=== PATIENT | male | born 1955 | race Caucasian/White ===

== ENCOUNTER 2016-11-06 17:10 | Observation (INO) | payer OTHER ==
[~2016-11-06] VITALS: Ht 180.3 cm; Wt 66.0 kg
[2016-11-06 17:12] VITALS: BP 177/88; PULSE 100; RESP 24; TEMP 98.2; O2SAT 100
--- NOTE | 2016-11-06 20:45 | PD ---
HPI Chief Complaint: Headache Time Seen by Provider: 20:27 Travel History International Travel<30 days: No Contact w/Intl Traveler<30days: No Traveled to known affect area: No History of Present Illness HPI 61yo M with PMH of cluster headaches was sent in by neurologist Dr. Dozier for evaluation and treatment. Pt has history of cluster headache for 7 years but it has gotten worst for the last year. He is currently in a clinical trial ENFORCE and states that since Sunday, headache is getting worst. Pt saw Dr. Dozier today in his office and was referred to the ED for CT scan and medication for his headache. Denies any trauma, fever, chest pain, sob, n/v, abdominal pain, focal weakness or numbness. States headache is left sided, associated with left eye tearing and feels like his usual headache. PFSH Past Medical History Diminished Hearing: No Headaches: Yes (cluster) Tetanus Vaccination: > 5 Years Influenza Vaccination: No Past Surgical History Surgical History: No Previous Surgery Social History Alcohol Use: No Tobacco Use: Yes (one pack) Allergies-Medications (Allergen,Severity, Reaction): Coded Allergies: No Known Allergies (Unverified , 11/06/16) Reported Meds & Prescriptions Reported Meds & Active Scripts Active Reported Verapamil (Verapamil HCl) 80 Mg Tab Unknown Dose PO TID Imitrex (Sumatriptan Succinate) 100 Mg Tab 50 Mg PO Q4HR PRN If a satisfactory response has not been obtained at 2 hours, a second dose may be administered Bqtcbtwcky-Zhvcuxtehmlzf-Nemjnvxu 50-325-40 Mg Tab 2 Tab PO Q4H PRN Do not exceed 6 tablets/day. Review of Systems Except as stated in HPI: all other systems reviewed are Neg Physical Exam Narrative GENERAL: 61yo M in moderate distress. SKIN: Focused skin assessment warm/dry. HEAD: Atraumatic. Normocephalic. EYES: Pupils equal and round. EOMI. No scleral icterus. No injection or drainage. ENT: No nasal bleeding or discharge. Mucous membranes pink and moist. NECK: Trachea midline. No JVD. CARDIOVASCULAR: Regular rate and rhythm. No murmur appreciated. RESPIRATORY: No accessory muscle use. Clear to auscultation. Breath sounds equal bilaterally. GASTROINTESTINAL: Abdomen soft, non-tender, nondistended. MUSCULOSKELETAL: No obvious deformities. No clubbing. No cyanosis. No edema. NEUROLOGICAL: Awake and alert. No obvious cranial nerve deficits. Motor grossly within normal limits. Normal speech. PSYCHIATRIC: Appropriate mood and affect; insight and judgment normal. Data Data Last Documented VS Vital Signs Date Time Temp Pulse Resp B/P Pulse Ox O2 Delivery O2 Flow Rate FiO2 11/06/16 22:00 76 16 139/77 98 Room Air 11/06/16 17:12 98.2 Orders Complete Blood Count With Diff (11/06/16 20:54) Basic Metabolic Panel (Bmp) (11/06/16 20:54) Prothrombin Time / Inr (Pt) (11/06/16 20:54) Act Partial Throm Time (Ptt) (11/06/16 20:54) Ct Brain W/O Iv Contrast(Rout) (11/06/16 ) Ketorolac Inj (Toradol Inj) (11/06/16 22:30) Admit Order (Ed Use Only) (11/06/16 22:55) Labs Laboratory Tests Test 11/06/16 21:10 White Blood Count 16.1 TH/MM3 Red Blood Count 4.70 MIL/MM3 Hemoglobin 14.0 GM/DL Hematocrit 42.2 % Mean Corpuscular Volume 89.8 FL Mean Corpuscular Hemoglobin 29.7 PG Mean Corpuscular Hemoglobin 33.0 % Concent Red Cell Distribution Width 12.8 % Platelet Count 301 TH/MM3 Mean Platelet Volume 7.4 FL Neutrophils (%) (Auto) 70.2 % Lymphocytes (%) (Auto) 15.0 % Monocytes (%) (Auto) 7.4 % Eosinophils (%) (Auto) 6.6 % Basophils (%) (Auto) 0.8 % Neutrophils # (Auto) 11.3 TH/MM3 Lymphocytes # (Auto) 2.4 TH/MM3 Monocytes # (Auto) 1.2 TH/MM3 Eosinophils # (Auto) 1.1 TH/MM3 Basophils # (Auto) 0.1 TH/MM3 CBC Comment DIFF FINAL Differential Comment Prothrombin Time 10.4 SEC Prothromb Time International 0.9 RATIO Ratio Activated Partial 27.1 SEC Thromboplast Time Sodium Level 136 MEQ/L Potassium Level 3.9 MEQ/L Chloride Level 103 MEQ/L Carbon Dioxide Level 26.6 MEQ/L Anion Gap 6 MEQ/L Blood Urea Nitrogen 13 MG/DL Creatinine 0.81 MG/DL Estimat Glomerular Filtration 97 ML/MIN Rate Random Glucose 109 MG/DL Calcium Level 8.5 MG/DL MDM Medical Decision Making Medical Screen Exam Complete: Yes Emergency Medical Condition: Yes Differential Diagnosis Cluster headache vs. ICH vs. Brain tumor Narrative Course 61yo M with history of cluster headache here with worsening left sided headache. Pt was given oxygen in the ED with improvement of headache. I discussed case with Dr. Talamantes who is the neurologist covering Dr. Dozier. He recommends labs, CT brain and admit for observation for pain control as well as putting in a neurology consult. I gave pt toradol IV which helped with the pain but states that there is still pressure on the left side and it has not resolved. Labs reviewed, leukocytosis at 16.1. BMP unremarkable. CT brain negative. I discussed case with Dr. Rahman and accepted to Dr. Ye services. Pt agrees with observation for intractable cluster headache. Diagnosis Primary Impression: Cluster headache Qualified Code: G44.011 - Intractable episodic cluster headache Admitting Information Admitting Physician Requests: Observation Rolanda Page DO Nov 06, 2016 20:45 Rolanda Page DO Nov 06, 2016 20:45
[2016-11-06 21:33] LABS: AUTOMATED NEUTROPHIL # 11.3 TH/MM3 (1.8-7.7); BASOPHIL # 0.1 TH/MM3 (0-0.2); BASOPHIL % 0.8 % (0.0-2.0); EOSINOPHIL # 1.1 TH/MM3 (0-0.4); EOSINOPHIL % 6.6 % (0.0-4.0); HEMATOCRIT 42.2 % (39.0-51.0); HEMO FLAGS DIFF FINAL; LYMPHOCYTE # 2.4 TH/MM3 (1.0-4.8); MEAN CELL VOLUME 89.8 FL (80.0-100.0); MEAN CORPUSCULAR HEMOGLOBIN 29.7 PG (27.0-34.0); MONO % 7.4 % (0.0-8.0); NEUT % 70.2 % (16.0-70.0); PLATELET COUNT 301 TH/MM3 (150-450); RED CELL DISTRIBUTION WIDTH 12.8 % (11.6-17.2); WHITE BLOOD COUNT 16.1 TH/MM3 (4.0-11.0)
[2016-11-06 21:46] LABS: APTT (PATIENT) 27.1 SEC (24.3-30.1); INTERNATIONAL NORMALIZED RATIO 0.9 RATIO; PROTHROMBIN TIME - PATIENT 10.4 SEC (9.8-11.6)
--- NOTE | 2016-11-06 21:46 | RADRPT ---
EXAM DATE/TIME: 11/06/2016 21:28 [facility] COMPARISON: No previous studies available for comparison. INDICATIONS : Patient complains of cluster headache. RADIATION DOSE: 56.35 CTDIvol (mGy) MEDICAL HISTORY : None SURGICAL HISTORY : None. ENCOUNTER: Initial ACUITY: 1 day PAIN SCALE: 5/10 LOCATION: cranial TECHNIQUE: Multiple contiguous axial images were obtained of the head. Using automated exposure control and adj ustment of the mA and/or kV according to patient size, radiation dose was kept as low as reasonably a chievable to obtain optimal diagnostic quality images. DICOM format image data is available electro nically for review and comparison. FINDINGS: SUPERTENTORIUM; The ventricles are normal for age. There is no parenchymal hemorrhage, midline s hift, mass lesion, or acute infarction. No extra-axial fluid collections are seen. POSTERIOR FOSSA: The cerebellum and brainstem are intact. The 4th ventricle is midline. The cer ebellopontine angle is unremarkable. ORBITS/SINUS The visualized portion of the orbits is intact. There is no sinus disease. SKULL: No evidence of skull fracture. CONCLUSION: Negative for an acute process.. Giovanni Kwok MD FACR on November 06, 2016 at 21:43 Board Certified Radiologist. This report was verified electronically.
[2016-11-06 22:00] VITALS: BP 139/77; PULSE 76; RESP 16; O2SAT 98
[2016-11-06 22:00] LABS: BICARBONATE 26.6 MEQ/L (21.0-32.0); POTASSIUM 3.9 MEQ/L (3.5-5.1)
[2016-11-06] MEDS ORDERED: KETOROLAC TROMETHAMINE 30 MG/ML (IVP) VIAL IV PUSH ONE (22:30)
[2016-11-06] MEDS ORDERED: BUTATAB6 PO (22:40)
[2016-11-06] MEDS ORDERED: IMIT100T PO (22:40)
[2016-11-06] MEDS ORDERED: VERA80TA PO (22:40)
--- NOTE | 2016-11-06 23:17 | HHI.HP ---
HPI Service [facility] Hospitalists Primary Care Physician Raphael Evans M.D. Admission Diagnosis Cluster headache Chief Complaint: h/a, sent by his neurologist Dr Dozier Travel History International Travel<30 Days: No Contact w/Intl Traveler <30 Da: No Traveled to Known Affected Are: No History of Present Illness 61 yo M with long hx of cluster headaches was sent in by neurologist Dr. Dozier for evaluation and treatment. Pt has history of cluster headache for 7 years but it has gotten worst for the last year. He has recently been enrolled in a clinical trial [facility]NF[facility]CE and states that since Sunday, headache has been getting worse. Pt saw Dr. Dozier today in his office and was referred to the ED for CT scan and medication for his headache. Denies any trauma, fever, chest pain, sob , n/v, abdominal pain, focal weakness or numbness. States headache is left sided, associated with left eye tearing and feels like his usual headache. Not worst h/a of his life. He was treated with high flow oxygen in ER which helped his headache pain. Review of Systems Constitutional: DENIES: Diaphoretic episodes, Fatigue, Fever, Weight gain, Weight loss, Chills, Dizziness, Change in appetite, Night Sweats Endocrine: DENIES: Heat/cold intolerance, Polydipsia, Polyuria, Polyphagia Eyes: COMPLAINS OF: Eye pain, DENIES: Blurred vision, Diplopia, Eye inflammation, Vision loss, Photosensitivity, Double Vision Respiratory: DENIES: Apneas, Cough, Snoring, Wheezing, Hemoptysis, Sputum production, Shortness of breath Cardiovascular: DENIES: Chest pain, Palpitations, Syncope, Dyspnea on Exertion , PND, Lower Extremity Edema, Orthopnea, Claudication Gastrointestinal: DENIES: Abdominal pain, Black stools, Bloody stools, BRB per rectum, Constipation, Diarrhea, GERD, Nausea, Reflux, Vomiting, Difficulty Swallowing, Anorexia, See HPI Musculoskeletal: DENIES: Joint pain, Muscle aches, Stiffness, Joint Swelling, Back pain, Neck pain Integumentary: DENIES: Abnormal pigmentation, Nail changes, Pruritus, Rash Hematologic/lymphatic: DENIES: Bruising, Lymphadenopathy Immunologic/allergic: DENIES: Eczema, Urticaria Neurologic: COMPLAINS OF: Headache, DENIES: Abnormal gait, Localized weakness , Paresthesias, Seizures, Speech Problems, Tremor, Poor Balance Psychiatric: DENIES: Anxiety, Confusion, Mood changes, Depression, Hallucinations, Agitation, Suicidal Ideation, Homicidal Ideation, Delusions, History of Bipolar, History of Schizophrenia Past Family Social History Past Medical History Cluster h/a Past Surgical History None Reported Medications Verapamil (Verapamil HCl) 80 Mg Tab Unknown Dose PO TID Imitrex (Sumatriptan Succinate) 100 Mg Tab 50 Mg PO Q4HR PRN If a satisfactory response has not been obtained at 2 hours, a second dose may be administered Tqvqosgqwx-Ayhajqgxdftao-Jwdwpgox 50-325-40 Mg Tab 2 Tab PO Q4H PRN Do not exceed 6 tablets/day. 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 cooperative with exam. SKIN: No rashes, ecchymoses or lesions. Cool and dry. HEAD: Atraumatic. Normocephalic. No temporal or scalp tenderness. ttp over left globe EYES: Pupils equal round and reactive. Extraocular motions intact. No scleral icterus. No injection or drainage. ENT: Nose without bleeding, purulent drainage or septal hematoma. Airway patent. NECK: Trachea midline. No JVD or lymphadenopathy. Supple, nontender, no meningeal signs. CARDIOVASCULAR: Regular rate and rhythm without murmurs, gallops, or rubs. RESPIRATORY: Clear to auscultation. Breath sounds equal bilaterally. No wheezes , rales, or rhonchi. GASTROINTESTINAL: Abdomen soft, non-tender, nondistended. No hepato-splenomegaly , or palpable masses. No guarding. MUSCULOSKELETAL: Extremities without clubbing, cyanosis, or edema. No joint tenderness, effusion, or edema noted. No calf tenderness. NEUROLOGICAL: Awake and alert. Cranial nerves II through XII intact. Motor and sensory grossly within normal limits. Five out of 5 muscle strength in all muscle groups. Normal speech. Laboratory Laboratory Tests Test 11/06/16 21:10 White Blood Count 16.1 Red Blood Count 4.70 Hemoglobin 14.0 Hematocrit 42.2 Mean Corpuscular Volume 89.8 Mean Corpuscular Hemoglobin 29.7 Mean Corpuscular Hemoglobin 33.0 Concent Red Cell Distribution Width 12.8 Platelet Count 301 Mean Platelet Volume 7.4 Neutrophils (%) (Auto) 70.2 Lymphocytes (%) (Auto) 15.0 Monocytes (%) (Auto) 7.4 Eosinophils (%) (Auto) 6.6 Basophils (%) (Auto) 0.8 Neutrophils # (Auto) 11.3 Lymphocytes # (Auto) 2.4 Monocytes # (Auto) 1.2 Eosinophils # (Auto) 1.1 Basophils # (Auto) 0.1 CBC Comment DIFF FINAL Differential Comment Prothrombin Time 10.4 Prothromb Time International 0.9 Ratio Activated Partial 27.1 Thromboplast Time Sodium Level 136 Potassium Level 3.9 Chloride Level 103 Carbon Dioxide Level 26.6 Anion Gap 6 Blood Urea Nitrogen 13 Creatinine 0.81 Estimat Glomerular Filtration 97 Rate Random Glucose 109 Calcium Level 8.5 Result Diagram: 11/06/16210911/06/16 2110 Imaging Last [address] 11/06/16 0000 Signed Impressions: Service Date/Time: Sunday, November 06, 2016 21:28 - CONCLUSION: Negative for an acute process.. Giovanni Kwok MD FACR Assessment and Plan Problem List: (1) Cluster headache Status: Acute Plan: Neuro recommends observation and they will see tomorrow as pt's neurologist directed pt to ER. Pt has been advised that this stay may be considered to be a/w experimental medication which could render his insurance useless. He voiced understanding, but didn't want to chance going home with h/a. Code Status full Discussed Condition With pt and ER provider Problem Qualifiers (1) Cluster headache: Qualified Code: G44.011 - Intractable episodic cluster headache Mane Rahman MD PhD Nov 06, 2016 23:17
[2016-11-06] MEDS ORDERED: SUMAtriptan INJ 6 MG/0.5 ML VIAL SQ ONE (23:30)
[2016-11-07] VITALS (8 sets, daily range): BP systolic 108–161; BP diastolic 56–79; PULSE 61–77; RESP 16–18; TEMP 96.1–98.1; O2SAT 97–100
[2016-11-07] MEDS: VERAPAMIL HCL 80 MG TAB PO SCH ×4 (00:07→22:03)
[2016-11-07] MEDS ORDERED: MORPHINE SULFATE 8 MG/ML INJ IV PUSH ONE (02:15)
[2016-11-07] MEDS ORDERED: ONDANSETRON HCL 4 MG/2 ML VIAL IV PUSH ONE (02:15)
[2016-11-07] MEDS: ACETAMIN 325 MG/BUTALBITAL 50 MG/CAFFEINE 40 MG TAB PO PRN ×2 (05:43→15:27)
--- NOTE | 2016-11-07 11:49 | HHI.PR ---
Subjective Remarks Pt reports that he is still having the severe pain intermittently, currently the pain is not severe He has been having consistent/daily cluster headaches for almost a year per the pt. He has been using Verapamil and Imitrex and high flow oxygen at home which helps but nothing has been able to break the cycle of the headaches He was enrolled in a clinical trial with Neurology more recently Objective Vitals Vital Signs Date Time Temp Pulse Resp B/P Pulse Ox O2 Delivery O2 Flow Rate FiO2 11/07/16 11:28 96.9 69 16 123/70 99 11/07/16 08:20 96.1 61 16 126/70 98 11/07/16 05:19 97.7 62 16 161/79 100 11/07/16 00:30 97.8 71 18 135/66 98 11/06/16 23:30 16 11/06/16 22:00 76 16 139/77 98 Room Air 11/06/16 20:33 20 11/06/16 17:12 98.2 100 24 177/88 100 Room Air Result Diagram: 11/06/16210911/06/162109 Other Results Laboratory Tests Test 11/06/16 21:10 White Blood Count 16.1 TH/MM3 Red Blood Count 4.70 MIL/MM3 Hemoglobin 14.0 GM/DL Hematocrit 42.2 % Mean Corpuscular Volume 89.8 FL Mean Corpuscular Hemoglobin 29.7 PG Mean Corpuscular Hemoglobin 33.0 % Concent Red Cell Distribution Width 12.8 % Platelet Count 301 TH/MM3 Mean Platelet Volume 7.4 FL Neutrophils (%) (Auto) 70.2 % Lymphocytes (%) (Auto) 15.0 % Monocytes (%) (Auto) 7.4 % Eosinophils (%) (Auto) 6.6 % Basophils (%) (Auto) 0.8 % Neutrophils # (Auto) 11.3 TH/MM3 Lymphocytes # (Auto) 2.4 TH/MM3 Monocytes # (Auto) 1.2 TH/MM3 Eosinophils # (Auto) 1.1 TH/MM3 Basophils # (Auto) 0.1 TH/MM3 CBC Comment DIFF FINAL Differential Comment Prothrombin Time 10.4 SEC Prothromb Time International 0.9 RATIO Ratio Activated Partial 27.1 SEC Thromboplast Time Sodium Level 136 MEQ/L Potassium Level 3.9 MEQ/L Chloride Level 103 MEQ/L Carbon Dioxide Level 26.6 MEQ/L Anion Gap 6 MEQ/L Blood Urea Nitrogen 13 MG/DL Creatinine 0.81 MG/DL Estimat Glomerular Filtration 97 ML/MIN Rate Random Glucose 109 MG/DL Calcium Level 8.5 MG/DL Imaging Last [address] 11/06/16 0000 Signed Impressions: Service Date/Time: Sunday, November 06, 2016 21:28 - CONCLUSION: Negative for an acute process.. Giovanni Kwok MD FACR Objective Remarks General: NAD, AAOx3 Chest: CTA Cardiac: Regular Abd: +BS, soft ND/NT Ext: No edema A/P Problem List: (1) Cluster headache Status: Acute Plan: - Pt was admitted for severe/worsening cluster headache. - he was seen by Neuro yesterday who recommended the pt be admitted for observation with consultation to Neurology - Head CT was negative for any acute process. - Home meds continued - Supplemental high flow O2 as needed - Spoke with Dr. Cho and pt is not being administered any new medication, this admission is for pain control with narcotics. Await Neurology evaluation and recommendations. - Pt reports that the Morphine only helped for about 45 mins Assessment and Plan Patient examined. Assessment and plan formulated with Holly Warner PA-C. I agree with the above. cluster headaches. neurology following and ordered imaging and medications. follow his progress. Problem Qualifiers (1) Cluster headache: Qualified Code: G44.011 - Intractable episodic cluster headache Holly Warner Nov 07, 2016 11:49 Lele Zuñiga MD Nov 07, 2016 20:07
--- NOTE | 2016-11-07 13:18 | MB ---
cc: MELODY SCOTT M.D. DATE OF CONSULTATION 11/07/2016 DATE OF 1955 AGE [age] years old REASON FOR CONSULTATION RESULTS Cluster headaches. HISTORY OF PRESENT ILLNESS This is a 61-year-old man with a long history of cluster headaches, followed with Dr. Dozier and with Dr. Werner, was in a trial but apparently now will no longer be in a cluster headache trial. He initially had periodic clusters. Now since last year they have been occurring daily multiple times. They have been getting worse and he was referred here for medicines. He recently started oxygen therapy that he uses towards the end of the cluster and it seems to work. He is now on verapamil as well and uses sumatriptan. He has been on lithium in the past as a preventative. He is not sure if he has been on beta blockers. The new medicines for him are actually the oxygen. ALLERGIES TO MEDICATIONS None known. CURRENT MEDICINES 1. Verapamil 80 mg t.i.d. 2. Imitrex 100 mg q. 4 p.r.n. 3. Apparently has some Fioricet as well. SOCIAL HISTORY He is a This smoker, 1/2 to 1 pack for years. No illicit drugs. 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 ALLERGIES None reported. PHYSICAL EXAMINATION VITAL SIGNS: Currently vitals show temperature of 96.9, pulse 69, respiratory rate 16, blood pressure 123/70, sating at 99%. GENERAL: He is awake and alert. NEUROLOGICAL EXAMINATION: He is oriented and fluent. Pupils reactive. Face symmetrical. His tongue is midline. He does not have any increased lacrimation, may have a mild ptosis on the left. He is not in exacerbation right now. Motor-mejia no drift, no leg lag. Cerebellar testing is normal. Toes downgoing. Gait is withheld. LABS Reviewed. White count 16.1, neutrophils 70.2. Coag panel - Fine. Chemistries: Glucose 109. RECENT IMAGING STUDIES CT head negative for any acute process. IMPRESSION A 61-year-old man with a history of cluster headaches, multiple daily. RECOMMENDATIONS 1. Recommend at this point trying him on some steroids. We will put him on some Solu-Medrol 40 mg IV q. 12, do that for two days and then put him on a Medrol Dosepak, titration to discontinuation. 2. Continue his O2 at either 8 liters 10 minutes nasal cannula or face mask 100%. 3. We will try some dihydroergotamine 1 mg every 1 hour to a max of 3 mg total dose, to see if that breaks the cycle. 4. Watch him for any ischemia. If he complains of any unusual symptoms, the medicine should be stopped immediately, watching for any chest pain, dizziness, paresthesias, flushing, nausea or vomiting. 5. If he does have some nausea, go ahead and going give him some either Zofran or Compazine. 6. Since he has not had an MRI in some time I am going to take the liberty of having him undergo an MRI of the brain and the [place] of [place] just to make sure there is no intracranial stenosis and no enhancement on the left side. 7. We will continue current care. Hopefully, if he is feeling better in the next 24 hours he can be discharged, followed up in the office with his neurologist. Thank you. MD SOCO Michaels/CESAR /12:59 PM /1:10 PM
--- NOTE | 2016-11-07 15:57 | RADRPT ---
EXAM DATE/TIME: 11/07/2016 14:23 [facility] COMPARISON: MRI BRAIN W/O CONTRAST, November 07, 2016, 14:23. INDICATIONS : Cephalgia. MEDICAL HISTORY : Cluster headaches. SURGICAL HISTORY : Right foot. ENCOUNTER: Subsequent ACUITY: 1 day PAIN SCORE: 8/10 LOCATION: cranial Please note a normal MRA of the brain does not entirely exclude the possibility of a small aneurysm, nor the possibility of distal intracranial vessel disease. TECHNIQUE: 3D time of flight MRA was performed. Source images, multiplanar STS MIP, and 3D volume MIP reconstru ctions were reviewed. FINDINGS: There is excellent visualization of the major intracranial arteries out to the second-order branch ve ssels. There is no evidence for aneurysm, vessel truncation or stenosis, and no evidence for vascula r malformation. The left vertebral is hypoplastic. CONCLUSION: 1. Negative examination. Alexander Kwok MD on November 07, 2016 at 15:52 Board Certified Radiologist. This report was verified electronically.
--- NOTE | 2016-11-07 16:00 | RADRPT ---
EXAM DATE/TIME: 11/07/2016 14:23 [facility] COMPARISON: No previous studies available for comparison. INDICATIONS : Cephalgia. MEDICAL HISTORY : Cluster headaches. SURGICAL HISTORY : Right foot. ENCOUNTER: Subsequent ACUITY: 1 day PAIN SCORE: 8/10 LOCATION: cranial TECHNIQUE: Multiplanar, multisequence MRI of the brain was performed without contrast. FINDINGS: CEREBRUM: The ventricles are normal for age. No evidence of midline shift, mass lesion, hemorrhage or acute in farction. No extraaxial fluid collections are seen. The pituitary gland and suprasellar cistern are normal in configuration. WHITE MATTER: No significant signal abnormalities are seen in the white matter. POSTERIOR FOSSA: The cerebellum and brainstem are intact. The 4th ventricle is midline. The cerebellopontine angle is unremarkable. The cerebellar tonsils are normal in position. DIFFUSION IMAGING: No focal areas of restricted diffusion are seen. No evidence of acute infarction. EXTRACRANIAL: The visualized portions of the orbits and paranasal sinuses are unremarkable. CONCLUSION: 1. No acute intracranial abnormality. Alexander Kwok MD on November 07, 2016 at 15:57 Board Certified Radiologist. This report was verified electronically.
[2016-11-07] MEDS: methylPREDNISolone SOD SUCC 40 MG/1 ML VIAL IV PUSH SCH (17:07)
[2016-11-07] MEDS: DIHYDROERGOTAMINE MESYLATE 1 MG/ML AMP IM PRN ×2 (17:08→22:04)
[2016-11-08 04:19] VITALS: BP 149/60; PULSE 72; RESP 18; TEMP 98.4; O2SAT 98
[2016-11-08] MEDS: methylPREDNISolone SOD SUCC 40 MG/1 ML VIAL IV PUSH SCH (05:45)
[2016-11-08] MEDS: DIHYDROERGOTAMINE MESYLATE 1 MG/ML AMP IM PRN (05:45)
[2016-11-08] MEDS: VERAPAMIL HCL 80 MG TAB PO SCH (05:46)
[2016-11-08 08:00] VITALS: BP 155/65; PULSE 66; RESP 20; TEMP 96.3; O2SAT 98
--- NOTE | 2016-11-08 09:29 | HHI.PR ---
Subjective Remarks Pt reports that he is feeling much better today He was able to sleep 9 hours consecutively without any headaches. Pt wants to go home today. Objective Vitals Vital Signs Date Time Temp Pulse Resp B/P Pulse Ox O2 Delivery O2 Flow Rate FiO2 11/08/16 08:00 96.3 66 20 155/65 98 11/08/16 04:19 98.4 72 18 149/60 98 11/07/16 23:11 98.1 69 18 108/56 97 11/07/16 21:46 98.1 77 18 141/78 98 11/07/16 19:05 99 21 11/07/16 15:49 97.5 70 16 124/62 99 11/07/16 11:28 96.9 69 16 123/70 99 11/07/16 11/07/16 11/08/16 14:59 22:59 06:59 Intake Total 840 ml Balance 840 ml Intake Oral 840 ml # Voids 4 # Bowel Movements 0 Result Diagram: 11/06/16210911/06/162109 Other Results Laboratory Tests Test 11/06/16 21:10 White Blood Count 16.1 TH/MM3 Red Blood Count 4.70 MIL/MM3 Hemoglobin 14.0 GM/DL Hematocrit 42.2 % Mean Corpuscular Volume 89.8 FL Mean Corpuscular Hemoglobin 29.7 PG Mean Corpuscular Hemoglobin 33.0 % Concent Red Cell Distribution Width 12.8 % Platelet Count 301 TH/MM3 Mean Platelet Volume 7.4 FL Neutrophils (%) (Auto) 70.2 % Lymphocytes (%) (Auto) 15.0 % Monocytes (%) (Auto) 7.4 % Eosinophils (%) (Auto) 6.6 % Basophils (%) (Auto) 0.8 % Neutrophils # (Auto) 11.3 TH/MM3 Lymphocytes # (Auto) 2.4 TH/MM3 Monocytes # (Auto) 1.2 TH/MM3 Eosinophils # (Auto) 1.1 TH/MM3 Basophils # (Auto) 0.1 TH/MM3 CBC Comment DIFF FINAL Differential Comment Prothrombin Time 10.4 SEC Prothromb Time International 0.9 RATIO Ratio Activated Partial 27.1 SEC Thromboplast Time Sodium Level 136 MEQ/L Potassium Level 3.9 MEQ/L Chloride Level 103 MEQ/L Carbon Dioxide Level 26.6 MEQ/L Anion Gap 6 MEQ/L Blood Urea Nitrogen 13 MG/DL Creatinine 0.81 MG/DL Estimat Glomerular Filtration 97 ML/MIN Rate Random Glucose 109 MG/DL Calcium Level 8.5 MG/DL Imaging Last [address] 11/06/16 0000 Signed Impressions: Service Date/Time: Sunday, November 06, 2016 21:28 - CONCLUSION: Negative for an acute process.. Giovanni Kwok MD FACR Objective Remarks General: NAD, AAOx3 Chest: CTA Cardiac: Regular Abd: +BS, soft ND/NT Ext: No edema A/P Problem List: (1) Cluster headache Status: Acute Plan: - Pt was admitted for severe/worsening cluster headache. - he was seen by Neuro yesterday who recommended the pt be admitted for observation with consultation to Neurology - Head CT was negative for any acute process. - Home meds continued - Supplemental high flow O2 as needed - Appreciate Neurology evaluation and recommendations. - Pt was started on Solu-Medrol 40mg Q12H yesterday and Dihydroergotamine 1mg PRN cluster headache and received the DHE three times yesterday. - He is feeling much better today and did not have any headaches all night. - Pt wants to go home. - The case was discussed with Neurology and pt is being prescribed: - Migranal Nasal [place]. At the first signs of a headache administer 1 spray to each nostril then repeat after 15 minutes. No more than 4 sprays per attack and no more than 6 sprays per day is to be administered. - Patient is to prime the spray pump prior to administration (squeeze 4 times) per pharmacy instructions. - Patient is also being prescribed a prednisone taper. He is to take 20mg twice daily x 3 days, then decrease to 20 mg daily x 2 days, then decrease to 10mg daily x 2 days, then stop. - He is to continue his high flow oxygen as needed and his previous home meds until he obtains his Migranal prescription. - Patient is to followup with his Neurologist in 1 week. - I called [facility] about preauthorization for the Migranal, they will be working on attaining this. Pt instructed to contact the pharmacy for status updates on the prescription. Assessment and Plan Patient examined. Assessment and plan formulated with Holly Warner PA-C. I agree with the above. cluster headaches.spoke to neurology. ok to d/c. pt feels great. taper prednisone. cont verapamil. he responded to dihydroergotamine so neurology recommends nasal spray migranal...which needs prior auth from cp..will give script and call cp to ask for authorization. Problem Qualifiers (1) Cluster headache: Qualified Code: G44.011 - Intractable episodic cluster headache Holly Warner Nov 08, 2016 09:29 Lele Zuñiga MD Nov 08, 2016 10:19
--- NOTE | 2016-11-08 09:55 | HHI.PR ---
Subjective Remarks S:feels much better after steroids and DHE ready to go home.No chest pain or pressure w/rx. Objective Vital Signs Date Time Temp Pulse Resp B/P Pulse Ox O2 Delivery O2 Flow Rate FiO2 11/08/16 08:00 96.3 66 20 155/65 98 11/08/16 04:19 98.4 72 18 149/60 98 11/07/16 23:11 98.1 69 18 108/56 97 11/07/16 21:46 98.1 77 18 141/78 98 11/07/16 19:05 99 21 11/07/16 15:49 97.5 70 16 124/62 99 11/07/16 11:28 96.9 69 16 123/70 99 I/O 11/07/16 11/07/16 11/07/16 11/08/16 11/08/16 11/08/16 07:00 15:00 23:00 07:00 15:00 23:00 Intake Total 840 ml Balance 840 ml Intake Oral 840 ml # Voids 4 # Bowel Movements 0 awake alert fluent perrla motor intact gait intact Result Diagram: 11/06/16210911/06/162109 Assessment and Plan Assessment and Plan a/p cluster h/a's -cont steroid -taper cont oxygen prn 8-10 l nc cont verapamil will need PA for migranal nasal (dhe)medication. ok to dc home and f/u neuro 2 weeks. mri/a normal.d/w pt . Denisha Cho MD Nov 08, 2016 09:55
[2016-11-08] MEDS ORDERED: MIGR4SPR (10:09)
[2016-11-08] MEDS ORDERED: PRED20 PO (10:09)
--- NOTE | 2016-11-08 10:14 | HHI.DCPOC ---
Discharge Care Plan Diagnosis: (1) Cluster headache Goals to Promote Your Health - Patient is being prescribed: - Migranal Nasal [place]. At the first signs of a headache administer 1 spray to each nostril then repeat after 15 minutes. No more than 4 sprays per attack and no more than 6 sprays per day is to be administered. - Patient is to prime the spray pump prior to administration (squeeze 4 times) per pharmacy instructions. - Patient is also being prescribed a prednisone taper. He is to take 20mg twice daily x 3 days, then decrease to 20 mg daily x 2 days, then decrease to 10mg daily x 2 days, then stop. - Patient is to followup with his Neurologist in 1 week. Directions to Meet Your Goals Take your medications as prescribed Follow your dietary instruction Follow activity as directed Keep your appointments as scheduled Take your immunizations and boosters as scheduled If your symptoms worsen call your PCP, if no PCP go to Urgent Care Center or Emergency Room Smoking is Dangerous to Your Health. Avoid second hand smoke Call the 24-hour hour crisis hotline for domestic abuse at Holly Warner Nov 08, 2016 10:14
== END 2016-11-08 11:38 | disposition home or self-care (01) ==
LOC: NEPD 17:10 → NEDA 22:57 → NEPHCDU 11-07 00:20
PROVIDERS: ADMIT Hospitalist; ATTEND Hospitalist
DX: G44.011 Episodic cluster headache, intractable (principal); Z99.81 Dependence on supplemental oxygen
CPT/HCPCS: 70450; 70544; 70551; 80048; 85025; 85610; 85730; 96374; 99285; G0378; J1110; J1885; J2270; J2405; J2920; J3030